=== PATIENT | female | born 1980 | race American Indian/Alaskan Native ===

== ENCOUNTER 2021-07-09 23:45 | Emergency (ER) | payer MEDICAID | END 2021-07-10 13:21 | disposition left against medical advice (07) | LOC: ED 23:45 | DX: R51.9 Headache, unspecified (principal); Z53.21 Procedure and treatment not carried out due to patient leaving prior to being seen by health care provider ==

== ENCOUNTER 2021-10-16 19:09 | Emergency (ER) | payer SELFPAY ==
[2021-10-16 20:22] VITALS: BP 140/89
[2021-10-16 21:14] LABS: Bilirubin,Urine NEG (Negative); Blood,Urine SM (Negative); Color,Urine Yellow (Yellow); Protein,Urine <15 mg/dL mg/dL (Negative); Urobilinogen,Urine < 2.0 mg/dL (<2.0)
[2021-10-16 21:21] LABS: Mucus,Urine 1+ /HPF
== END 2021-10-18 09:06 | disposition left against medical advice (07) ==
LOC: ED 19:09
DX: R05.9 Cough, unspecified (principal); Z53.21 Procedure and treatment not carried out due to patient leaving prior to being seen by health care provider
CPT/HCPCS: 81001; 87210